=== PATIENT | male | born 1960 | race Caucasian/White ===

== ENCOUNTER 2021-07-19 12:22 | Outpatient (CLI) | payer OTHER ==
[~2021-07-19 12:22] MED LIST: Magnevist 469MG/ML 20 ML VIAL ONE
== END 2021-07-19 12:23 | disposition home or self-care (01) ==
LOC: CSHSPEC 12:22
PROVIDERS: ATTEND Urology
DX: R97.20 Elevated prostate specific antigen [PSA] (principal); Z95.9 Presence of cardiac and vascular implant and graft, unspecified
CPT/HCPCS: 71045; 72197; 82565

== ENCOUNTER 2022-12-22 11:46 | Outpatient (CLI) | payer OTHER | END 2022-12-22 11:47 | disposition home or self-care (01) | LOC: CSHSPEC 11:46 | PROVIDERS: ATTEND Urology | DX: R97.20 Elevated prostate specific antigen [PSA] (principal); Z95.0 Presence of cardiac pacemaker; N40.2 Nodular prostate without lower urinary tract symptoms | CPT/HCPCS: 72197; A9579 ==